=== PATIENT | male | born 1980 | race Caucasian/White ===

== ENCOUNTER 2022-05-23 01:10 | Emergency (ER) | payer SELFPAY ==
[~2022-05-23] VITALS: Ht 167.6 cm; Wt 61.9 kg
[2022-05-23 01:17] VITALS: BP 120/68
--- NOTE | 2022-05-23 01:20 | NUR ---
PT TO LOBBY
--- NOTE | 2022-05-23 02:55 | NUR ---
PATIENT LEFT WITHOUT BEING SEEN BY DR. LOCKWOOD. NO FURTHER CARE PROVIDED FOR PATIENT.
== END 2022-05-23 02:55 | disposition left against medical advice (07) ==
LOC: MED 01:10
DX: M54.2 Cervicalgia (principal); Z53.21 Procedure and treatment not carried out due to patient leaving prior to being seen by health care provider